=== PATIENT | male | born 1950 | race Caucasian/White ===

== ENCOUNTER → 2022-09-05 | Outpatient (CLI) | payer OTHER | LOC: M RAD 13:06 | PROVIDERS: ATTEND Family Medicine | DX: M79.604 Pain in right leg (principal) ==

== ENCOUNTER → 2023-02-14 | Outpatient (REF) | payer OTHER ==
[2023-02-15 12:51] LABS: APPEARANCE, URINE CLOUDY (CLEAR); BACTERIA, URINE AUTO 3+ (NEGATIVE); BILIRUBIN, URINE AUTO NEGATIVE (NEGATIVE); BLOOD, URINE BLOOD 2+ (NEGATIVE); COLOR, URINE YELLOW (YELLOW); GLUCOSE, URINE (UA) AUTO NEGATIVE (NEGATIVE); KETONE, URINE AUTO NEGATIVE (NEGATIVE); LEUKOCYTE ESTERASE, URINE AUTO 3+ (NEGATIVE); MUCUS, URINE SMALL (NEGATIVE); NITRITE, URINE AUTO NEGATIVE (NEGATIVE); PROTEIN, URINE AUTO NEGATIVE (NEGATIVE); RBC, URINE AUTO 3 /HPF (0-3); SPECIFIC GRAVITY URINE AUTO 1.008 (1.002-1.035); SQUAMOUS EPITHELIAL CELL UR AU 1 /HPF (0-6); UROBILINOGEN, URINE AUTO 0.2 mg/dL (0.0-2.0); WBC, URINE AUTO 153 /HPF (0-3)
== END ==
LOC: M LAB REF 11:25
PROVIDERS: ATTEND Urology
DX: R30.0 Dysuria (principal)

== ENCOUNTER 2023-10-29 23:57 | Emergency (ER) | payer MEDICARE, OTHER ==
[~2023-10-29] VITALS: Ht 172.7 cm; Wt 106.8 kg
[2023-10-30 00:10] VITALS: TEMP 97
[2023-10-30] MEDS: ONDANSETRON 4MG 2ML VIAL IV ONE (01:13)
[2023-10-30] MEDS: MORPHINE 4 MG/ML 1ML VIAL IV ONE (01:14)
[2023-10-30 01:21] LABS: BASO # 0.1 10^3/uL (0.0-0.2); BASO % 0.6 % (0.0-1.0); EOS # 0.4 10^3/uL (0.0-0.5); EOS % 4.1 % (0.0-3.0); HEMOGLOBIN 15.6 g/dl (13.5-17.5); LYMPH # 3.8 10^3/uL (1.5-5.0); LYMPH % 38.8 % (24.0-44.0); MEAN CORPUSCULAR HEMOGLOBIN 30.9 pg (27.0-33.0); MEAN CORPUSCULAR HGB CONC 33.9 g/dl (32.0-36.5); MEAN CORPUSCULAR VOLUME 91.1 fl (80.0-96.0); MONO # 0.6 10^3/uL (0.0-0.8); MONO % 6.5 % (2.0-8.0); NEUTROPHILS # 4.8 10^3/uL (1.5-8.5); NEUTROPHILS % 49.2 % (36.0-66.0); PLATELET COUNT, AUTOMATED 277 10^3/uL (150-450); RED BLOOD COUNT 5.05 10^6/uL (4.30-6.10); WHITE BLOOD COUNT 9.7 10^3/uL (4.0-10.0)
[2023-10-30 02:25] LABS: CPK CREATINE PHOSPHOKINASE 35 U/L (46-171)
[2023-10-30 02:32] LABS: BLOOD UREA NITROGEN 27 MG/DL (9-23); CALCIUM LEVEL 9.2 MG/DL (8.3-10.6); CARBON DIOXIDE LEVEL 30 MMOL/L (20-31); CHLORIDE LEVEL 107 MMOL/L (98-107); CK-MB VALUE MASS < 1.0 NG/ML (<3.6); GLOMERULAR FILTRATION RATE 57.4 (>42); GLUCOSE, FASTING 145 MG/DL (74-106); MB/CK RELATIVE INDEX 2.85 (< OR =4); POTASSIUM SERUM 4.3 MMOL/L (3.5-5.1); SODIUM LEVEL 140 MMOL/L (136-145)
[2023-10-30 03:56] LABS: CK-MB VALUE MASS < 1.0 NG/ML (<3.6)
[2023-10-30 04:39] LABS: CPK CREATINE PHOSPHOKINASE 32 U/L (46-171); MB/CK RELATIVE INDEX 3.12 (< OR =4)
[2023-10-30] MEDS: KETOROLAC 30 MG/ML 1ML VIAL IV ONE (05:04)
[2023-10-30 05:40] LABS: CK-MB VALUE MASS < 1.0 NG/ML (<3.6)
[2023-10-30 05:53] LABS: CPK CREATINE PHOSPHOKINASE 35 U/L (46-171); MB/CK RELATIVE INDEX 2.85 (< OR =4)
[2023-10-30 06:00] VITALS: BP 135/74; O2SAT 91
== END 2023-10-30 06:30 | disposition home or self-care (01) ==
LOC: M ED 23:57
DX: R07.89 Other chest pain (principal); R51.9 Headache, unspecified; G91.3 Post-traumatic hydrocephalus, unspecified; G40.909 Epilepsy, unspecified, not intractable, without status epilepticus; F03.90 Unspecified dementia, unspecified severity, without behavioral disturbance, psychotic disturbance, mood disturbance, and anxiety; Z87.891 Personal history of nicotine dependence; Z88.2 Allergy status to sulfonamides; Z88.8 Allergy status to other drugs, medicaments and biological substances
CPT/HCPCS: 36415; 70450; 71045; 75809; 80048; 82550; 82553; 84484; 85025; 87486; 87581; 87633; 87798; 93005; 93041; 94760; 96374; 96375; 99285; J1885; J2405

== ENCOUNTER 2023-11-11 08:57 | Emergency (ER) | payer MEDICARE ==
[~2023-11-11] VITALS: Ht 172.7 cm; Wt 112.1 kg
[2023-11-11] MEDS ORDERED: PROP80TA PO (09:08)
[2023-11-11] MEDS ORDERED: CAND4TAB7 (09:08)
[2023-11-11] MEDS ORDERED: TAMS1CAP17 (09:08)
[2023-11-11] MEDS ORDERED: LAMO25TA4 (09:08)
[2023-11-11] MEDS ORDERED: SOLI5TAB (09:08)
[2023-11-11 09:47] LABS: BASO # 0.1 10^3/uL (0.0-0.2); BASO % 0.4 % (0.0-1.0); EOS # 0.1 10^3/uL (0.0-0.5); EOS % 0.7 % (0.0-3.0); HEMATOCRIT 45.9 % (42.0-52.0); HEMOGLOBIN 15.6 g/dl (13.5-17.5); LYMPH # 3.2 10^3/uL (1.5-5.0); LYMPH % 26.4 % (24.0-44.0); MEAN CORPUSCULAR HEMOGLOBIN 30.6 pg (27.0-33.0); MEAN CORPUSCULAR VOLUME 90.2 fl (80.0-96.0); MONO # 0.6 10^3/uL (0.0-0.8); NEUTROPHILS # 8.2 10^3/uL (1.5-8.5); PLATELET COUNT, AUTOMATED 299 10^3/uL (150-450); RED BLOOD COUNT 5.09 10^6/uL (4.30-6.10); WHITE BLOOD COUNT 12.2 10^3/uL (4.0-10.0)
[2023-11-11 10:09] VITALS: BP 173/103
[2023-11-11] MEDS: ASPIRIN 81MG CHEW TABLET PO ONE (10:09)
[2023-11-11] MEDS: METOPROLOL 5 MG/5 ML VIAL IV ONE (10:09)
[2023-11-11] MEDS: NITROGLYCERIN 0.4MG SUBL TABLET SL PRN (10:10)
[2023-11-11 10:14] LABS: ALBUMIN 3.6 G/DL (3.2-5.2); BILIRUBIN,DIRECT 0.2 MG/DL (<0.4); BILIRUBIN,TOTAL 0.7 MG/DL (0.3-1.2); CALCIUM LEVEL 10.2 MG/DL (8.3-10.6); CK-MB VALUE MASS 38.3 NG/ML (<3.6); CREATININE FOR GFR 1.28 MG/DL (0.70-1.30); GLOMERULAR FILTRATION RATE 58.5 (>42); MAGNESIUM LEVEL 1.9 MG/DL (1.8-2.4); POTASSIUM SERUM 4.7 MMOL/L (3.5-5.1); THYROID STIMULATING HORMONE 1.785 uIU/ML (0.55-4.78); TOTAL PROTEIN 7.1 G/DL (5.7-8.2)
[2023-11-11 10:15] LABS: FREE T4 1.32 NG/DL (0.89-1.76)
[2023-11-11 10:19] LABS: MB/CK RELATIVE INDEX 6.14 (< OR =4)
[2023-11-11] MEDS ORDERED: ISOVUE-370 76% 100ML VIAL As Ordered ONE (10:24)
[2023-11-11] MEDS: TENECTEPLASE 50 MG/10 ML VIAL IV STA (11:08)
[2023-11-11] MEDS: CLOPIDOGREL 300 MG TAB (PLAVIX) PO ONE (11:08)
[2023-11-11] MEDS: HEPARIN DRIP 25,000 UNITS in IV 1 EA IV SCH (11:09)
[2023-11-11] MEDS: HEPARIN SOD (PORCINE) 5000UNITS/ML 1ML VIAL/SYRINGE IV ONE (11:11)
[2023-11-11] MEDS: NS 500 ML IV ONE (11:12)
[2023-11-11] MEDS: NITROGLYCERIN/D5W 100MCG/ML 25 MG in IV 1 EA IV SCH (11:15)
[2023-11-11] MEDS: ATORVASTATIN 20 MG TAB PO ONE (11:19)
[2023-11-11 11:22] LABS: INR 1.03; PARTIAL THROMBOPLASTIN TIME 28.3 SECONDS (24.8-34.2); PROTHROMBIN TIME 13.2 SECONDS (12.5-14.5)
[2023-11-11 11:35] LABS: CK-MB VALUE MASS 56.7 NG/ML (<3.6)
[2023-11-11 11:37] VITALS: BP 157/54; TEMP 97.1; O2SAT 96
[2023-11-11 11:42] LABS: MB/CK RELATIVE INDEX 7.42 (< OR =4)
== END 2023-11-11 11:41 | disposition short-term general hospital (02) ==
LOC: M ED 08:57
DX: I21.3 ST elevation (STEMI) myocardial infarction of unspecified site (principal); I16.1 Hypertensive emergency; N40.0 Benign prostatic hyperplasia without lower urinary tract symptoms; I51.7 Cardiomegaly; I10 Essential (primary) hypertension; E78.5 Hyperlipidemia, unspecified; J45.909 Unspecified asthma, uncomplicated; Z85.51 Personal history of malignant neoplasm of bladder; Z87.891 Personal history of nicotine dependence; Z82.49 Family history of ischemic heart disease and other diseases of the circulatory system; Z88.2 Allergy status to sulfonamides; Z88.8 Allergy status to other drugs, medicaments and biological substances
CPT/HCPCS: 71045; 71275; 74174; 80048; 80076; 82550; 82553; 83690; 83735; 83880; 84439; 84443; 84484; 85025; 85610; 85730; 93005; 93041; 94760; 96365; 96368; 96375; 99291; J2305; J3101; Q9967

== ENCOUNTER 2023-12-16 16:57 | Emergency (ER) | payer MEDICARE ==
[~2023-12-16] VITALS: Ht 172.7 cm; Wt 105.4 kg
[~2023-12-16 16:57] MED LIST: CAND4TAB7; LAMO25TA4; PROP80TA PO; SOLI5TAB; TAMS1CAP17
[2023-12-16 17:39] LABS: VENOUS BASE EXCESS -2.9 (-2.0-2.0); VENOUS O2 SATURATION 54.7 % (60.0-80.0); VENOUS PARTIAL PRESSURE CO2 44.6 mmHg (38.0-50.0); VENOUS PARTIAL PRESSURE O2 29.6 mmHg (30.0-50.0); VENOUS PH 7.331 UNITS (7.330-7.430); VENOUS STANDARD HCO3 21.1 MMOL/L; VENOUS TOTAL CO2 24.4 MMOL/L (24.0-28.0)
[2023-12-16 17:47] LABS: BASO # 0.1 10^3/uL (0.0-0.2); BASO % 0.5 % (0.0-1.0); EOS # 0.5 10^3/uL (0.0-0.5); EOS % 4.8 % (0.0-3.0); HEMATOCRIT 38.9 % (42.0-52.0); HEMOGLOBIN 12.3 g/dl (13.5-17.5); LYMPH # 3.5 10^3/uL (1.5-5.0); LYMPH % 37.2 % (24.0-44.0); MEAN CORPUSCULAR HEMOGLOBIN 28.9 pg (27.0-33.0); MEAN CORPUSCULAR HGB CONC 31.6 g/dl (32.0-36.5); MEAN CORPUSCULAR VOLUME 91.3 fl (80.0-96.0); MONO # 0.9 10^3/uL (0.0-0.8); MONO % 9.6 % (2.0-8.0); NEUTROPHILS # 4.3 10^3/uL (1.5-8.5); NEUTROPHILS % 45.6 % (36.0-66.0); PLATELET COUNT, AUTOMATED 397 10^3/uL (150-450); RED BLOOD COUNT 4.26 10^6/uL (4.30-6.10); WHITE BLOOD COUNT 9.3 10^3/uL (4.0-10.0)
[2023-12-16 18:00] LABS: INR 1.86; PROTHROMBIN TIME 20.8 SECONDS (12.5-14.5)
[2023-12-16 18:17] LABS: LIPASE 30 U/L (12-53)
[2023-12-16 18:19] LABS: ALBUMIN 2.9 G/DL (3.2-5.2); ALKALINE PHOSPHATASE 94 U/L (46-116); ALT/SGPT 39 U/L (7.0-40); AST/SGOT 46 U/L (<34); BILIRUBIN,DIRECT 0.2 MG/DL (<0.4); BILIRUBIN,TOTAL 0.5 MG/DL (0.3-1.2); BLOOD UREA NITROGEN 24 MG/DL (9-23); CALCIUM LEVEL 9.3 MG/DL (8.3-10.6); CARBON DIOXIDE LEVEL 26 MMOL/L (20-31); CHLORIDE LEVEL 108 MMOL/L (98-107); CK-MB VALUE MASS < 1.0 NG/ML (<3.6); CREATININE FOR GFR 1.55 MG/DL (0.70-1.30); GLOMERULAR FILTRATION RATE 46.9 (>42); GLUCOSE, FASTING 88 MG/DL (74-106); POTASSIUM SERUM 4.2 MMOL/L (3.5-5.1); SODIUM LEVEL 141 MMOL/L (136-145); TOTAL PROTEIN 6.5 G/DL (5.7-8.2)
[2023-12-16 18:21] LABS: CPK CREATINE PHOSPHOKINASE 48 U/L (46-171); MB/CK RELATIVE INDEX 2.08 (< OR =4); THYROID STIMULATING HORMONE 1.368 uIU/ML (0.55-4.78)
[2023-12-16 19:09] LABS: MB/CK RELATIVE INDEX 1.88 (< OR =4)
[2023-12-16 21:18] LABS: CK-MB VALUE MASS < 1.0 NG/ML (<3.6); CPK CREATINE PHOSPHOKINASE 67 U/L (46-171); MB/CK RELATIVE INDEX 1.49 (< OR =4)
[2023-12-16 22:24] VITALS: BP 124/86; TEMP 98.8; O2SAT 98
== END 2023-12-16 22:25 | disposition home or self-care (01) ==
LOC: M ED 16:57
DX: R07.9 Chest pain, unspecified (principal); I44.4 Left anterior fascicular block; I25.2 Old myocardial infarction; I10 Essential (primary) hypertension; Z88.2 Allergy status to sulfonamides; Z88.8 Allergy status to other drugs, medicaments and biological substances; Z79.899 Other long term (current) drug therapy

== ENCOUNTER 2024-02-19 14:34 | Emergency (ER) | payer MEDICARE ==
[~2024-02-19] VITALS: Ht 172.7 cm; Wt 100.4 kg
[~2024-02-19 14:34] MED LIST changes: -LAMO25TA4; +LAMO25TA4 PO; -TAMS1CAP17; +TAMS1CAP17 PO
[2024-02-19 15:05] LABS: BASO # 0.1 10^3/uL (0.0-0.2); BASO % 0.6 % (0.0-1.0); EOS # 0.4 10^3/uL (0.0-0.5); EOS % 4.2 % (0.0-3.0); HEMATOCRIT 46.6 % (42.0-52.0); LYMPH # 1.8 10^3/uL (1.5-5.0); MEAN CORPUSCULAR HGB CONC 32.2 g/dl (32.0-36.5); MONO # 0.5 10^3/uL (0.0-0.8); MONO % 6.3 % (2.0-8.0); NEUTROPHILS # 5.7 10^3/uL (1.5-8.5); NEUTROPHILS % 67.2 % (36.0-66.0); PLATELET COUNT, AUTOMATED 287 10^3/uL (150-450); RED BLOOD COUNT 5.18 10^6/uL (4.30-6.10); WHITE BLOOD COUNT 8.5 10^3/uL (4.0-10.0)
[2024-02-19 15:29] LABS: CALCIUM LEVEL 10.3 MG/DL (8.3-10.6); CREATININE FOR GFR 1.79 MG/DL (0.70-1.30); GLOMERULAR FILTRATION RATE 39.7 (>42); POTASSIUM SERUM 4.3 MMOL/L (3.5-5.1)
[2024-02-19 15:30] LABS: MB/CK RELATIVE INDEX 2.5 (< OR =4)
[2024-02-19 16:33] LABS: CK-MB VALUE MASS < 1.0 NG/ML (<3.6); CPK CREATINE PHOSPHOKINASE 37 U/L (46-171)
[2024-02-19] MEDS ORDERED: ATOR40TA75 PO (16:35)
[2024-02-19] MEDS ORDERED: METO1TAB33 PO (16:35)
[2024-02-19] MEDS ORDERED: JARD1TAB PO (16:35)
[2024-02-19] MEDS ORDERED: PANT40TA29 PO (16:35)
[2024-02-19] MEDS ORDERED: LOSA25TA13 PO (16:35)
[2024-02-19] MEDS ORDERED: COLC0.6T47 PO (16:35)
[2024-02-19] MEDS ORDERED: BRIL90TA PO (16:35)
[2024-02-19] MEDS ORDERED: ELIQ5TAB PO (16:35)
[2024-02-19] MEDS ORDERED: MELA5TAB7 PO (16:37)
[2024-02-19] MEDS ORDERED: CETI10TA4 PO (16:37)
[2024-02-19] MEDS ORDERED: HOME MED LIST COMPLETE! XX SCH (16:40)
[2024-02-19] MEDS: KETOROLAC 30 MG/ML 1ML VIAL IV ONE (16:57)
[2024-02-19 19:08] VITALS: BP 126/87; TEMP 97; O2SAT 94
== END 2024-02-19 19:22 | disposition home or self-care (01) ==
LOC: M ED 14:34 → EDBD 14:34 → M ED 19:22
DX: R51.9 Headache, unspecified (principal); I25.10 Atherosclerotic heart disease of native coronary artery without angina pectoris; I10 Essential (primary) hypertension; E78.5 Hyperlipidemia, unspecified; Z87.820 Personal history of traumatic brain injury; R56.9 Unspecified convulsions; Z95.5 Presence of coronary angioplasty implant and graft; Z85.51 Personal history of malignant neoplasm of bladder; Z79.899 Other long term (current) drug therapy; Z88.2 Allergy status to sulfonamides; Z88.8 Allergy status to other drugs, medicaments and biological substances
CPT/HCPCS: 70450; 71045; 75809; 80048; 82550; 82553; 83880; 84484; 85025; 87486; 87581; 87633; 87798; 93005; 93041; 94760; 96374; 99285; J1885

== ENCOUNTER 2025-02-13 19:16 | Emergency (ER) | payer MEDICARE ==
[~2025-02-13] VITALS: Ht 177.8 cm; Wt 89.5 kg
[~2025-02-13 19:16] MED LIST changes: +ATOR40TA75 PO; +BRIL90TA PO; +CETI10TA4 PO; +CIPR500T39 PO; +COLC0.6T53 PO; +ELIQ5TAB PO; +JARD1TAB PO; +LAMO-18 PO; -LAMO25TA4 PO; +LOSA25TA13 PO; +MELA5TAB44 PO; +METO1TAB33 PO; +OMEP40CA4 PO; +PANT40TA29 PO
[2025-02-13 21:29] VITALS: BP 110/59; TEMP 96.9; O2SAT 96
== END 2025-02-13 22:03 | disposition home or self-care (01) ==
LOC: M ED 19:16
DX: T83.091A Other mechanical complication of indwelling urethral catheter, initial encounter (principal); I10 Essential (primary) hypertension; J45.909 Unspecified asthma, uncomplicated; Z79.01 Long term (current) use of anticoagulants; Z79.899 Other long term (current) drug therapy; Z88.2 Allergy status to sulfonamides; Z88.8 Allergy status to other drugs, medicaments and biological substances

== ENCOUNTER 2025-02-22 01:00 | Emergency (ER) | payer MEDICARE ==
[~2025-02-22] VITALS: Ht 172.7 cm; Wt 85.6 kg
[2025-02-22 02:50] LABS: BASO # 0.0 10^3/uL (0.0-0.2); BASO % 0.3 % (0.0-1.0); EOS # 0.1 10^3/uL (0.0-0.5); EOS % 0.8 % (0.0-3.0); LYMPH # 2.1 10^3/uL (1.5-5.0); LYMPH % 14.6 % (24.0-44.0); MONO # 0.9 10^3/uL (0.0-0.8); MONO % 6.0 % (2.0-8.0); NEUTROPHILS # 11.1 10^3/uL (1.5-8.5); NEUTROPHILS % 77.5 % (36.0-66.0); PLATELET COUNT, AUTOMATED 210 10^3/uL (150-450)
[2025-02-22 03:18] LABS: CALCIUM LEVEL 8.7 MG/DL (8.3-10.6); CARBON DIOXIDE LEVEL 26.0 MMOL/L (20-31); CHLORIDE LEVEL 99.0 MMOL/L (98-107); CREATININE FOR GFR 1.49 MG/DL (0.70-1.30); GLOMERULAR FILTRATION RATE 48.6 (>42); POTASSIUM SERUM 4.4 MMOL/L (3.5-5.1); SODIUM LEVEL 134.0 MMOL/L (136-145)
[2025-02-22 04:16] LABS: KETONE, URINE AUTO RFX NEGATIVE (NEGATIVE); LEUKOCYTE ESTERASE UR AUTO RFX 2+ (NEGATIVE); MUCUS, URINE RFX LARGE (NEGATIVE); NITRITE, URINE AUTO RFX POSITIVE (NEGATIVE); RBC, URINE AUTO RFX 77 /HPF (0-3); SQUAM EPITHELIAL CELL UR AURFX 2 /HPF (0-6); WBC, URINE AUTO RFX TNTC /HPF (0-3)
[2025-02-22] MEDS ORDERED: CEFD300C PO (06:56)
[2025-02-22] MEDS ORDERED: NYST1POW3 TOP (06:56)
[2025-02-22] MEDS: NYSTATIN 100,000 UNITS/GM TOPICAL PWD 15 GM TOP STA (07:18)
[2025-02-22] MEDS: CEFDINIR 300 MG CAP PO ONE (07:18)
[2025-02-22 07:44] VITALS: BP 128/70; TEMP 99; O2SAT 98
[2025-02-24] MEDS ORDERED: AUGM500T34 PO (16:48)
== END 2025-02-22 08:00 | disposition home or self-care (01) ==
LOC: M ED 01:00 → EEVIPCON 01:00 → M ED 08:00
DX: N39.0 Urinary tract infection, site not specified (principal); B37.2 Candidiasis of skin and nail; Z96.0 Presence of urogenital implants; Z79.01 Long term (current) use of anticoagulants; Z79.899 Other long term (current) drug therapy

== ENCOUNTER 2025-02-22 21:46 | Emergency (ER) | payer MEDICARE ==
[~2025-02-22] VITALS: Ht 167.6 cm; Wt 89.6 kg
[~2025-02-22 21:46] MED LIST changes: +CEFD300C PO; +NYST1POW3 TOP
[2025-02-22] MEDS: LIDOCAINE 2% 5 ML JELLY UROJET TOP STA (21:59)
[2025-02-23] MEDS: ACETAMINOPHEN 325 MG TAB PO ONE (00:56)
[2025-02-23] MEDS: traMADol 50 MG TAB PO ONE (05:19)
[2025-02-23 07:35] VITALS: BP 109/71; TEMP 97.3; O2SAT 97
[2025-02-24] MEDS ORDERED: AUGM500T34 PO (16:48)
== END 2025-02-23 09:43 | disposition home or self-care (01) ==
LOC: EDBD 21:46 → M ED 21:46
DX: S00.03XA Contusion of scalp, initial encounter (principal); M53.3 Sacrococcygeal disorders, not elsewhere classified; Z79.01 Long term (current) use of anticoagulants; M16.0 Bilateral primary osteoarthritis of hip; N40.0 Benign prostatic hyperplasia without lower urinary tract symptoms; N32.89 Other specified disorders of bladder; G91.9 Hydrocephalus, unspecified; Z98.2 Presence of cerebrospinal fluid drainage device; Z96.0 Presence of urogenital implants; M51.360 Other intervertebral disc degeneration, lumbar region with discogenic back pain only; Z90.49 Acquired absence of other specified parts of digestive tract; W06.XXXA Fall from bed, initial encounter; Y92.003 Bedroom of unspecified non-institutional (private) residence as the place of occurrence of the external cause; Y93.89 Activity, other specified; Y99.9 Unspecified external cause status; E78.5 Hyperlipidemia, unspecified; I10 Essential (primary) hypertension; K21.9 Gastro-esophageal reflux disease without esophagitis; R56.9 Unspecified convulsions; Z88.2 Allergy status to sulfonamides; Z88.1 Allergy status to other antibiotic agents; Z88.8 Allergy status to other drugs, medicaments and biological substances; Z79.899 Other long term (current) drug therapy; N39.0 Urinary tract infection, site not specified; B37.2 Candidiasis of skin and nail